=== PATIENT | female | born 1965 | race American Indian/Alaskan Native ===

== ENCOUNTER 2017-11-23 06:06 | Day surgery (SDC) | payer MEDICAID ==
[2017-11-23] MEDS ORDERED: ANCEF/STERILE WATER 2 GM/20 ML IV NR (07:00)
[2017-11-23 07:02] LABS: Hematocrit 39.5 % (30.3-42.9); Hemoglobin 13.1 gm/dl (10.1-14.3)
[2017-11-23] MEDS ORDERED: DIPRIVAN 10 MG/ML IV ONE (07:06)
[2017-11-23] MEDS ORDERED: SUBLIMAZE ONE ×2 (07:06→09:55)
[2017-11-23] MEDS ORDERED: VERSED IV PRN (07:27)
[2017-11-23] MEDS ORDERED: LACTATED RINGERS 1,000 ML IV SCH (07:27)
[2017-11-23] MEDS ORDERED: PERCOCET 5/325 PO PRN (07:49)
[2017-11-23] MEDS ORDERED: ZOFRAN IV PRN (07:49)
[2017-11-23] MEDS ORDERED: NARCAN 0.4 MG/1 ML IV PRN (07:49)
[2017-11-23] MEDS ORDERED: TORADOL IV PRN (07:49)
[2017-11-23] MEDS ORDERED: DEMEROL IV PRN (07:49)
--- NOTE | 2017-11-23 07:49 | Anesthesia Consultation ---
Anesthesia Consult and Med Hx Date of service: 11/23/17 - Airway Anesthetic Teeth Evaluation: Poor, Dentures (wears upper full dentures) ROM Head & Neck: Adequate Mental/Hyoid Distance: Adequate Mallampati Class: Class III Intubation Access Assessment: Probably Good - Pulmonary Exam CTA: No (very mild peripheral expiratory wheezing. ) - Cardiac Exam Cardiac Exam: RRR - Pre-Operative Health Status ASA Pre-Surgery Classification: ASA3 Proposed Anesthetic Plan: General - Pre-Anesthesia Comment Pre-Anesthesia Comments: Patient tolerates only 4 METS. Activity limited by Shortness of breath and arthritic pain. She has had transient "difficulty breathing" after two general anesthetics involving airway manipulation. Described as throat discomfort. No current chest pain or SOB. No recent cold or flu. No h/o N/V with anesthesia. No GERD - Pulmonary Hx Smoking: Yes (SINCE AGE 14, DOWN TO 1/2PPD) SOB: Yes (Not today. but with minimal activity) Home Oxygen Therapy: No Hx Sleep Apnea: No - Cardiovascular System Hx Hypertension: Yes (20+ YEARS) - Central Nervous System Hx Back Pain: Yes (ON OXYCODONE) Hx Psychiatric Problems: No - Gastrointestinal Hx Ulcer: No Hx Gastroesophageal Reflux Disease: No - Endocrine Hx Renal Disease: No - Hematic Hx Anemia: No - Other Systems Hx Alcohol Use: Yes (DAILY) Hx Substance Use: No Hx Cancer: No
--- NOTE | 2017-11-23 07:49 | Anesthesia Day of Surgery ---
Anesthesia Day of Surgery - Day of Surgery Patient Examined: Yes Patient H&P Reviewed: Yes Patient is NPO: Yes
[2017-11-23] MEDS ORDERED: NEO SYNEPHRINE/NS Syringe(OR USE) IV ONE (09:55)
[2017-11-23] MEDS ORDERED: XYLOCAINE MPF 2% ONE (09:55)
[2017-11-23] MEDS ORDERED: DECADRON ONE (10:27)
[2017-11-23] MEDS ORDERED: ZOFRAN ONE (10:27)
--- NOTE | 2017-11-23 10:27 | Operative Report ---
PREOPERATIVE DIAGNOSES: 1. Bilateral absence of nipples. 2. Bilateral acquired breast deformity. 3. 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 POSTOPERATIVE DIAGNOSES: 1. Bilateral absence of nipples. 2. Bilateral acquired breast deformity. 3. 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 PROCEDURE: Bilateral nipple reconstruction. SURGEON: Jorge Pierre MD PARAMEDIC INSTRUCTOR: Carmine Anaya CSA. DESCRIPTION OF PROCEDURE: The patient brought in to the operating room, placed on the table in supine position. Following administration of general anesthesia, bilateral breasts were prepped with Betadine solution and draped in the usual sterile manner. A #11 blade scalpel was used to incise preoperative markings for a flag shaped flap, raised in standard manner, folded upon itself to create a cylinder and secured in place with interrupted 3-0 Monocryl sutures. Donor site closed with interrupted and running subcuticular 2-0 and 3-0 Monocryl sutures. Prior to closure, a dermal base was deepithelialized upon which the nipple rested. Mastisol, Steri-Strips, and sterile dressings applied. The patient tolerated the procedure well and returned to recovery room in stable condition. JOB# [id number] FTW/[id number]
[2017-11-23] MEDS: DILAUDID IV PRN ×3 (10:56→11:27)
[2017-11-23 12:06] VITALS: BP 119/71
--- NOTE | 2017-11-23 18:55 | Post Anesthesia Evaluation ---
- Post Anesthesia Evaluation Patient Participated: Yes Airway Patent: Yes Stable Respiratory Function: Yes Nausea/Vomiting: No Temp > 96.8F: Yes Pain Manageable: Yes Adequeate Hydration: Yes Anesthesia Complications: No Block Receding Appropriately: Not Applicable Patient on Ventilator: No
== END 2017-11-23 12:40 | disposition home or self-care (01) ==
LOC: OR 06:06
PROVIDERS: ATTEND Plastic Surgery
DX: N64.89 Other specified disorders of breast (principal); I10 Essential (primary) hypertension; M19.90 Unspecified osteoarthritis, unspecified site; F32.9 Major depressive disorder, single episode, unspecified; E78.00 Pure hypercholesterolemia, unspecified; F17.210 Nicotine dependence, cigarettes, uncomplicated; E66.9 Obesity, unspecified; Z68.42 Body mass index [BMI] 45.0-49.9, adult; Z79.01 Long term (current) use of anticoagulants; Z79.899 Other long term (current) drug therapy; Z72.89 Other problems related to lifestyle; Z90.13 Acquired absence of bilateral breasts and nipples; Z98.891 History of uterine scar from previous surgery; Z98.890 Other specified postprocedural states; Z80.9 Family history of malignant neoplasm, unspecified; Z82.49 Family history of ischemic heart disease and other diseases of the circulatory system
CPT/HCPCS: 19350; 36415; 81025; 84132; 85014; 85018; J0690; J1100; J2250; J2370; J2405; J2704; J3010; J7120